=== PATIENT | male | born 1985 ===

== ENCOUNTER 2021-08-27 12:30 | Inpatient (IN) | payer SELFPAY ==
--- NOTE | 2021-08-27 13:20 | Emergency Department Report ---
- General Chief Complaint: Dyspnea/Respdistress Stated Complaint: HERMAN Time Seen by Provider: 08/27/21 12:44 Source: patient, family Mode of arrival: Ambulatory Limitations: No Limitations - History of Present Illness Initial Comments: History provided by patient and his significant other for some swedish translation with the patient's permission Patient is a 36-year-old male presents emergency room with complaints of shortness of breath that began 3 days ago. He has associated cough with mucus production. He is also been having fatigue and diarrhea. He denies any fever, vomiting, leg swelling, calf pain, hemoptysis. He has had a positive contact for COVID-19, he states his father has COVID. Patient has not been vaccinated for COVID. No past medical history. Non-smoker. No allergies to medications. - Related Data Allergies Allergy/AdvReac Type Severity Reaction Status Date / Time No Known Allergies Allergy Unverified 08/27/21 15:39 ED Review of Systems ROS: Stated complaint: HERMAN Other details as noted in HPI Comment: All other systems reviewed and negative ED Past Medical Hx - Past Medical History Previous Medical History?: No - Surgical History Past Surgical History?: No - Social History Smoking Status: Never Smoker ED Physical Exam - General Limitations: No Limitations General appearance: alert, in no apparent distress - Head Head exam: Present: atraumatic, normocephalic - Eye Eye exam: Present: normal appearance - ENT ENT exam: Present: mucous membranes moist - Respiratory Respiratory exam: Present: normal lung sounds bilaterally. Absent: respiratory distress, wheezes, rales, rhonchi, stridor, chest wall tenderness, accessory muscle use, decreased breath sounds, prolonged expiratory - Cardiovascular Cardiovascular Exam: Present: regular rate, normal rhythm, normal heart sounds. Absent: systolic murmur, diastolic murmur, rubs, gallop - Neurological Exam Neurological exam: Present: alert, oriented X3 - Psychiatric Psychiatric exam: Present: normal affect, normal mood - Skin Skin exam: Present: warm, dry, intact ED Course Vital Signs 08/27/21 12:37 Temperature 98.5 F Pulse Rate 97 H Respiratory 18 Rate Blood Pressure 114/76 O2 Sat by Pulse 94 Oximetry - Consultations Consultation #1: 08/27/21 14:[address] Yanes, hospitalist will accept and resume care of patient, will admit to hospital service ED Medical Decision Making - Lab Data Result diagrams: 08/27/21 12:53 08/27/21 14:32 Lab Results 08/27/21 08/27/21 Range/Units 12:53 12:53 WBC 9.1 (4.5-11.0) K/mm3 RBC 4.65 (3.65-5.03) M/mm3 Hgb 13.9 (11.8-15.2) gm/dl Hct 41.3 (35.5-45.6) % MCV 89 (84-94) fl MCH 30 (28-32) pg MCHC 34 (32-34) % RDW 12.6 L (13.2-15.2) % Plt Count 271 (140-440) K/mm3 Lymph % (Auto) 12.7 L (13.4-35.0) % Winn % (Auto) 3.5 (0.0-7.3) % Eos % (Auto) 0.1 (0.0-4.3) % Baso % (Auto) 0.2 (0.0-1.8) % Lymph # (Auto) 1.2 (1.2-5.4) K/mm3 Winn # (Auto) 0.3 (0.0-0.8) K/mm3 Eos # (Auto) 0.0 (0.0-0.4) K/mm3 Baso # (Auto) 0.0 (0.0-0.1) K/mm3 Seg Neutrophils % 83.5 H (40.0-70.0) % Seg Neutrophils # 7.6 (1.8-7.7) K/mm3 Sodium 134 L (137-145) mmol/L Potassium 4.7 (3.6-5.0) mmol/L Chloride 96.4 L (98-107) mmol/L Carbon Dioxide 26 (22-30) mmol/L Anion Gap 16 mmol/L BUN 9 (9-20) mg/dL Creatinine 0.7 L (0.8-1.3) mg/dL Estimated GFR > 60 ml/min BUN/Creatinine Ratio 13 % Glucose 109 H (75-100) mg/dL Calcium 8.5 (8.4-10.2) mg/dL Total Bilirubin 0.40 (0.1-1.2) mg/dL AST 55 H (5-40) units/L ALT 67 H (7-56) units/L Alkaline Phosphatase 89 (35-129) units/L Total Protein 7.9 (6.3-8.2) g/dL Albumin 3.4 L (3.9-5) g/dL Albumin/Globulin Ratio 0.8 % - Radiology Data Radiology results: report reviewed Ordering Physician: SHAUNA BRIZUELA Date of Service: 08/27/21 Procedure(s): XR chest routine 2V Accession Number(s): [id number] cc: SHAUNA BRIZUELA Fluoro Time In Minutes: CHEST 2 VIEWS INDICATION / CLINICAL INFORMATION: SOB, cough. COMPARISON: None available. FINDINGS: SUPPORT DEVICES: None. HEART / MEDIASTINUM: No significant abnormality. LUNGS / PLEURA: Diffuse bilateral pulmonary opacities No pneumothorax. ADDITIONAL FINDINGS: No significant additional findings. IMPRESSION: 1. Diffuse bilateral pulmonary opacities. Signer Name: Jaspreet Farrell MD Signed: 08/27/2021 1:34 PM Workstation Name: [id number] Transcribed By: CW Dictated By: BISHNU FARRELL MD Electronically Authenticated By: BISHNU FARRELL MD Signed Date/Time: 08/27/21 1334 DD/ 1333 TD/TT: - Medical Decision Making History provided by patient and his significant other for some swedish translation with the patient's permission Patient is a 36-year-old male presents emergency room with complaints of shor tness of breath that began 3 days ago. He has associated cough with mucus production. He is also been having fatigue and diarrhea. He denies any fever, vomiting, leg swelling, calf pain, hemoptysis. He has had a positive contact for COVID-19, he states his father has COVID. Patient has not been vaccinated for COVID. No past medical history. Non-smoker. No allergies to medications. Initial vitals with oxygen saturation 94% at rest, pantograph operator ambulated patient for a few feet and his oxygen desatted to 89% on room air and his heart rate increased to 110 bpm. Chest x-ray 1. Diffuse bilateral pulmonary opacities. Patient's inflammatory markers are elevated. Patient will be admitted for suspected COVID-19. Discussed case with Dr. Stephenson, ER attending who is agreeable with plan.Spoke to Dr. Yanes, hospitalist will accept and resume care of patient, will admit to hospital service. Patient agreeable with admission Critical care attestation.: If time is entered above; I have spent that time in minutes in the direct care of this critically ill patient, excluding procedure time. ED Disposition Clinical Impression: Suspected COVID-19 virus infection, Opacities of both lungs present on chest x- ray Acute respiratory failure Qualifiers: Respiratory failure complication: hypoxia Qualified Code(s): J96.01 - Acute respiratory failure with hypoxia Disposition: 02 [facility]ORT TERM [facility] Is pt being admited?: Yes Does the pt Need Aspirin: No Condition: Fair
[2021-08-27 13:24] LABS: Basophils % (Auto) 0.2 % (0.0-1.8); Eosinophils % (Auto) 0.1 % (0.0-4.3); Hematocrit 41.3 % (35.5-45.6); Hemoglobin 13.9 gm/dl (11.8-15.2); Lymphocytes # (Auto) 1.2 K/mm3 (1.2-5.4); Lymphocytes % (Auto) 12.7 % (13.4-35.0); Mean Corpuscular HGB Conc 34 % (32-34); Mean Corpuscular Volume 89 fl (84-94); Monocytes # (Auto) 0.3 K/mm3 (0.0-0.8); Monocytes % (Auto) 3.5 % (0.0-7.3); Platelet Count 271 K/mm3 (140-440); Red Blood Count 4.65 M/mm3 (3.65-5.03); Red Cell Distribution Width 12.6 % (13.2-15.2)
[2021-08-27 13:29] LABS: Alanine Aminotransferase 67 units/L (7-56); Albumin 3.4 g/dL (3.9-5); Blood Urea Nitrogen 9 mg/dL (9-20); Calcium 8.5 mg/dL (8.4-10.2); Hemolysis Index 10
[2021-08-27 13:34] LABS: BUN/Creatinine Ratio 13
--- NOTE | 2021-08-27 13:38 | XRay Report ---
CHEST 2 VIEWS INDICATION / CLINICAL INFORMATION: SOB, cough. COMPARISON: None available. FINDINGS: SUPPORT DEVICES: None. HEART / MEDIASTINUM: No significant abnormality. LUNGS / PLEURA: Diffuse bilateral pulmonary opacities No pneumothorax. ADDITIONAL FINDINGS: No significant additional findings. IMPRESSION: 1. Diffuse bilateral pulmonary opacities. Signer Name: Jaspreet Farrell MD Signed: 08/27/2021 1:34 PM Workstation Name: [id number]
[2021-08-27 15:09] LABS: C-Reactive Protein 23.5 mg/dL (0.00-1.30)
[2021-08-27] MEDS ORDERED: SODIUM CHLORIDE 0.9% 1000 ML 1,000 ML IV ONE (16:00)
[2021-08-27] MEDS ORDERED: cefTRIAXone/NS 2 GM/100 ML 2 GM/100 ML BAG IV ONE (16:00)
[2021-08-27] MEDS ORDERED: dexAMETHasone 4 MG/ML VIAL IV ONE (16:00)
[2021-08-27] MEDS ORDERED: AZITHROMYCIN/NS 500 MG/250 ML 500 MG/250 ML BAG IV ONE (16:00)
--- NOTE | 2021-08-27 21:30 | History and Physical Report ---
History of Present Illness Date of examination: 08/27/21 Date of admission: 08/27/21 14:13 Chief complaint: Cough and shortness of breath for 3 days History of present illness: Patient is a 36-year-old male presents emergency room with complaints of shortness of breath that began 3 days ago. He has associated cough with mucus production. He is also been having fatigue and diarrhea. He denies any fever, vomiting, leg swelling, calf pain, hemoptysis. He has had a positive contact for COVID-19, he states his father has COVID. Patient has not been vaccinated for COVID. No past medical history. Non-smoker. No allergies to medications. Patient is desaturating on minimal exertion - Past Medical History Previous Medical History?: No - Surgical History Past Surgical History?: No - Social History Smoking Status: Never Smoker Review of Systems ROS: Stated complaint: HERMAN Other details as noted in HPI Comment: All other systems reviewed and negative Medications and Allergies Allergies Allergy/AdvReac Type Severity Reaction Status Date / Time No Known Allergies Allergy Unverified 08/27/21 15:39 Exam - Constitutional Vitals: Temp Pulse Resp BP Pulse Ox 98.5 F 97 H 18 114/76 94 08/27/21 12:37 08/27/21 12:37 08/27/21 12:37 08/27/21 12:37 08/27/21 12:37 General appearance: Present: no acute distress, well-nourished - EENT Eyes: Present: PERRL ENT: hearing intact, clear oral mucosa - Neck Neck: Present: supple, normal ROM - Respiratory Respiratory effort: normal Respiratory: bilateral: CTA - Cardiovascular Heart rate: 78 Rhythm: regular Heart Sounds: Present: S1 & S2. Absent: rub, click - Extremities Extremities: pulses symmetrical, No edema Peripheral Pulses: within normal limits - Abdominal General gastrointestinal: Present: soft, non-tender, non-distended, normal bowel sounds Male genitourinary: Present: normal - Integumentary Integumentary: Present: clear, warm, dry - Musculoskeletal Musculoskeletal: gait normal, strength equal bilaterally - Psychiatric Psychiatric: appropriate mood/affect, intact judgment & insight - Neurologic Neurologic: CNII-XII intact, moves all extremities Results - Labs CBC & Chem 7: 08/27/21 12:53 08/27/21 14:32 Labs: Laboratory Last Values WBC 9.1 K/mm3 (4.5-11.0) 08/27/21 12:53 RBC 4.65 M/mm3 (3.65-5.03) 08/27/21 12:53 Hgb 13.9 gm/dl (11.8-15.2) 08/27/21 12:53 Hct 41.3 % (35.5-45.6) 08/27/21 12:53 MCV 89 fl (84-94) 08/27/21 12:53 MCH 30 pg (28-32) 08/27/21 12:53 MCHC 34 % (32-34) 08/27/21 12:53 RDW 12.6 % (13.2-15.2) L 08/27/21 12:53 Plt Count 271 K/mm3 (140-440) 08/27/21 12:53 Lymph % (Auto) 12.7 % (13.4-35.0) L 08/27/21 12:53 Sebastian % (Auto) 3.5 % (0.0-7.3) 08/27/21 12:53 Eos % (Auto) 0.1 % (0.0-4.3) 08/27/21 12:53 Baso % (Auto) 0.2 % (0.0-1.8) 08/27/21 12:53 Lymph # (Auto) 1.2 K/mm3 (1.2-5.4) 08/27/21 12:53 Sebastian # (Auto) 0.3 K/mm3 (0.0-0.8) 08/27/21 12:53 Eos # (Auto) 0.0 K/mm3 (0.0-0.4) 08/27/21 12:53 Baso # (Auto) 0.0 K/mm3 (0.0-0.1) 08/27/21 12:53 Seg Neutrophils % 83.5 % (40.0-70.0) H 08/27/21 12:53 Seg Neutrophils # 7.6 K/mm3 (1.8-7.7) 08/27/21 12:53 D-Dimer 530.96 ng/mlDDU (0-234) H 08/27/21 14:32 Sodium 134 mmol/L (137-145) L 08/27/21 12:53 Potassium 4.7 mmol/L (3.6-5.0) 08/27/21 12:53 Chloride 96.4 mmol/L (98-107) L 08/27/21 12:53 Carbon Dioxide 26 mmol/L (22-30) 08/27/21 12:53 Anion Gap 16 mmol/L 08/27/21 12:53 BUN 9 mg/dL (9-20) 08/27/21 12:53 Creatinine 0.7 mg/dL (0.8-1.3) L 08/27/21 12:53 Estimated GFR > 60 ml/min 08/27/21 12:53 BUN/Creatinine Ratio 13 % 08/27/21 12:53 Glucose 109 mg/dL (75-100) H 08/27/21 14:32 Calcium 8.5 mg/dL (8.4-10.2) 08/27/21 12:53 Ferritin 1807.0 ng/mL (30.0-300.0) H 08/27/21 14:32 Total Bilirubin 0.40 mg/dL (0.1-1.2) 08/27/21 12:53 AST 55 units/L (5-40) H 08/27/21 12:53 ALT 67 units/L (7-56) H 08/27/21 12:53 Alkaline Phosphatase 89 units/L (35-129) 08/27/21 12:53 Lactate Dehydrogenase 374 units/L (91-180) H 08/27/21 14:32 C-Reactive Protein 23.50 mg/dL (0.00-1.30) H 08/27/21 14:32 Total Protein 7.9 g/dL (6.3-8.2) 08/27/21 12:53 Albumin 3.4 g/dL (3.9-5) L 08/27/21 12:53 Albumin/Globulin Ratio 0.8 % 08/27/21 12:53 Short CBC 08/27/21 Range/Units 12:53 WBC 9.1 (4.5-11.0) K/mm3 Hgb 13.9 (11.8-15.2) gm/dl Hct 41.3 (35.5-45.6) % Plt Count 271 (140-440) K/mm3 BMP 08/27/21 08/27/21 12:53 14:32 Sodium 134 L Potassium 4.7 Chloride 96.4 L Carbon Dioxide 26 BUN 9 Creatinine 0.7 L Glucose 109 H 109 H Calcium 8.5 Liver Function 08/27/21 Range/Units 12:53 Total Bilirubin 0.40 (0.1-1.2) mg/dL AST 55 H (5-40) units/L ALT 67 H (7-56) units/L Alkaline Phosphatase 89 (35-129) units/L Albumin 3.4 L (3.9-5) g/dL - Imaging and Cardiology Chest x-ray: report reviewed Imaging and Cardiology: Chest x-ray Diffuse bilateral pulmonary opacities Assessment and Plan Advance Directives: Yes (Full code) VTE prophylaxis?: Chemical Plan of care discussed with patient/family: Yes - Patient Problems (1) Acute respiratory failure with hypoxia Current Visit: Yes Status: Acute Plan to address problem: Possibly secondary to bilateral pneumonia and Covid pneumonia Oxygen supplementation as necessary Isolation (2) Bilateral pneumonia Current Visit: Yes Status: Acute Plan to address problem: Patient initiated on IV Zithromax and IV Rocephin (3) Suspected COVID-19 virus infection Current Visit: Yes Status: Acute Plan to address problem: Patient initiated on IV Decadron Will defer about remdesivir to ID (4) DVT prophylaxis Current Visit: Yes Status: Acute Plan to address problem: On Lovenox and GI prophylaxis
[2021-08-27] MEDS ORDERED: ACETAMINOPHEN 325 MG TAB PO PRN (21:31)
[2021-08-27] MEDS ORDERED: ONDANSETRON 4 MG/2 ML INJ IV PRN (21:31)
[2021-08-27] MEDS ORDERED: oxyCODONE /ACETAMINOPHEN 5-325MG TAB PO PRN (21:37)
[2021-08-27] MEDS ORDERED: HYDROmorphone 1 MG/1 ML INJ IV PRN (21:37)
[2021-08-27] MEDS ORDERED: METOCLOPRAMIDE 10 MG/2 ML INJ IV PRN (21:37)
[2021-08-27] MEDS ORDERED: SODIUM CHLORIDE 0.9% 1000 ML 1,000 ML IV SCH (21:45)
[2021-08-27] MEDS: FAMOTIDINE 20 MG TAB PO SCH (22:58)
[2021-08-28] MEDS: guaiFENesin DM 200/20 MG ORAL LIQD 10 ML PO PRN (04:36)
[2021-08-28 07:37] LABS: Basophils % (Auto) 0.2 % (0.0-1.8); Hematocrit 37.9 % (35.5-45.6); Hemoglobin 13.5 gm/dl (11.8-15.2); Lymphocytes # (Auto) 0.9 K/mm3 (1.2-5.4); Lymphocytes % (Auto) 14.1 % (13.4-35.0); Mean Corpuscular HGB Conc 36 % (32-34); Mean Corpuscular Volume 88 fl (84-94); Monocytes # (Auto) 0.4 K/mm3 (0.0-0.8); Monocytes % (Auto) 6.1 % (0.0-7.3); Platelet Count 306 K/mm3 (140-440); Red Blood Count 4.33 M/mm3 (3.65-5.03); Red Cell Distribution Width 12.7 % (13.2-15.2)
[2021-08-28 07:59] LABS: Alanine Aminotransferase 64 units/L (7-56); Albumin 3.4 g/dL (3.9-5); Blood Urea Nitrogen 12 mg/dL (9-20); Calcium 8.6 mg/dL (8.4-10.2); Hemolysis Index 34
[2021-08-28 08:02] LABS: BUN/Creatinine Ratio 20
--- NOTE | 2021-08-28 08:51 | Progress Note ---
Assessment and Plan Assessment and plan: (1) Acute respiratory failure with hypoxia Current Visit: Yes Status: Acute Plan to address problem: Possibly secondary to bilateral pneumonia and Covid pneumonia Oxygen supplementation as necessary Isolation (2) Bilateral pneumonia Current Visit: Yes Status: Acute Plan to address problem: Patient initiated on IV Zithromax and IV Rocephin (3) Suspected COVID-19 virus infection Current Visit: Yes Status: Acute Plan to address problem: Patient initiated on IV Decadron Will defer about remdesivir to ID (4) DVT prophylaxis Current Visit: Yes Status: Acute Plan to address problem: On Lovenox and GI prophylaxis Closely monitor the patient and adjust management as needed Follow marin PCR test, ID consult if positive Plan of care reviewed with the patient and his nurse History Interval history: I seen and examined the patient at the bedside Isolation precautions and PPE protocols followed Admitted with PUI, no new complaints Hospitalist Physical - Constitutional Vitals: Temp Pulse Resp BP Pulse Ox 97.7 F 80 20 121/77 96 08/28/21 04:43 08/28/21 04:43 08/28/21 04:43 08/28/21 04:43 08/28/21 07:54 General appearance: Present: no acute distress, well-nourished, obese - EENT Eyes: Present: PERRL, EOM intact - Neck Neck: Present: supple, normal ROM - Respiratory Respiratory effort: normal Respiratory: bilateral: diminished, rhonchi, negative: rales, wheezing - Cardiovascular Rhythm: regular Heart Sounds: Present: S1 & S2 - Extremities Extremities: no ischemia, No edema - Abdominal General gastrointestinal: soft, non-tender, non-distended, normal bowel sounds - Integumentary Integumentary: Present: clear, warm - Psychiatric Psychiatric: appropriate mood/affect, cooperative - Neurologic Neurologic: moves all extremities Results - Labs CBC & Chem 7: 08/28/21 07:05 08/28/21 07:05 Labs: Laboratory Last Values WBC 6.2 K/mm3 (4.5-11.0) 08/28/21 07:05 RBC 4.33 M/mm3 (3.65-5.03) 08/28/21 07:05 Hgb 13.5 gm/dl (11.8-15.2) 08/28/21 07:05 Hct 37.9 % (35.5-45.6) 08/28/21 07:05 MCV 88 fl (84-94) 08/28/21 07:05 MCH 31 pg (28-32) 08/28/21 07:05 MCHC 36 % (32-34) H 08/28/21 07:05 RDW 12.7 % (13.2-15.2) L 08/28/21 07:05 Plt Count 306 K/mm3 (140-440) 08/28/21 07:05 Lymph % (Auto) 14.1 % (13.4-35.0) 08/28/21 07:05 [place] % (Auto) 6.1 % (0.0-7.3) 08/28/21 07:05 Eos % (Auto) 0.0 % (0.0-4.3) 08/28/21 07:05 Baso % (Auto) 0.2 % (0.0-1.8) 08/28/21 07:05 Lymph # (Auto) 0.9 K/mm3 (1.2-5.4) L 08/28/21 07:05 [place] # (Auto) 0.4 K/mm3 (0.0-0.8) 08/28/21 07:05 Eos # (Auto) 0.0 K/mm3 (0.0-0.4) 08/28/21 07:05 Baso # (Auto) 0.0 K/mm3 (0.0-0.1) 08/28/21 07:05 Seg Neutrophils % 79.6 % (40.0-70.0) H 08/28/21 07:05 Seg Neutrophils # 5.0 K/mm3 (1.8-7.7) 08/28/21 07:05 D-Dimer 530.96 ng/mlDDU (0-234) H 08/27/21 14:32 Sodium 134 mmol/L (137-145) L 08/28/21 07:05 Potassium 4.5 mmol/L (3.6-5.0) 08/28/21 07:05 Chloride 98.0 mmol/L (98-107) 08/28/21 07:05 Carbon Dioxide 25 mmol/L (22-30) 08/28/21 07:05 Anion Gap 16 mmol/L 08/28/21 07:05 BUN 12 mg/dL (9-20) 08/28/21 07:05 Creatinine 0.6 mg/dL (0.8-1.3) L 08/28/21 07:05 Estimated GFR > 60 ml/min 08/28/21 07:05 BUN/Creatinine Ratio 20 % 08/28/21 07:05 Glucose 144 mg/dL (75-100) H 08/28/21 07:05 POC Glucose 138 mg/dL (70-105) H 08/28/21 06:57 Calcium 8.6 mg/dL (8.4-10.2) 08/28/21 07:05 Ferritin 1807.0 ng/mL (30.0-300.0) H 08/27/21 14:32 Total Bilirubin 0.40 mg/dL (0.1-1.2) 08/28/21 07:05 AST 46 units/L (5-40) H 08/28/21 07:05 ALT 64 units/L (7-56) H 08/28/21 07:05 Alkaline Phosphatase 87 units/L (35-129) 08/28/21 07:05 Lactate Dehydrogenase 374 units/L (91-180) H 08/27/21 14:32 C-Reactive Protein 23.50 mg/dL (0.00-1.30) H 08/27/21 14:32 Total Protein 7.9 g/dL (6.3-8.2) 08/28/21 07:05 Albumin 3.4 g/dL (3.9-5) L 08/28/21 07:05 Albumin/Globulin Ratio 0.8 % 08/28/21 07:05 Elias/IV: Voiding Method Urinal Active Medications - Current Medications Current Medications: Generic Name Dose Route Start Last Admin Trade Name Freq PRN Reason Stop Dose Admin Acetaminophen 650 mg 08/27/21 21:31 Acetaminophen 325 Mg Tab PO Q4H PRN Pain MILD(1-3)/Fever >100.5/LYNN Dexamethasone 8 mg 08/28/21 10:00 Dexamethasone 4 Mg/Ml Vial IV 09/05/21 10:01 Q24HR ARLENE Enoxaparin Sodium 40 mg 08/28/21 10:00 Enoxaparin 40 Mg/0.4 Ml Inj SUB-Q QDAY ARLENE Famotidine 20 mg 08/27/21 22:00 08/27/21 22:58 Famotidine 20 Mg Tab PO 20 mg BID ARLENE Administration Guaifenesin 10 ml 08/28/21 04:07 08/28/21 04:36 Guaifenesin Dm 200/20 Mg Oral Liqd 10 Ml PO 10 ml Q4H PRN Administration Cough Hydromorphone HCl 0.5 mg 08/27/21 21:37 Hydromorphone 1 Mg/1 Ml Inj IV Q3H PRN Pain , Severe (7-10) Sodium Chloride 1,000 mls @ 75 mls/hr 08/27/21 21:45 08/27/21 22:59 Nacl 0.9% 1000 Ml IV 08/28/21 10:00 75 mls/hr DIRECT ARLENE Administration Azithromycin 500 mg in 250 mls @ 250 mls/hr 08/28/21 10:00 Zithromax/Ns IV 08/31/21 10:59 Q24HR ARLENE Ceftriaxone Sodium 2 gm in 100 mls @ 200 mls/hr 08/28/21 10:00 Rocephin/Ns 2 Gm/100 Ml IV 08/31/21 10:29 Q24HR ARLENE Protocol Metoclopramide HCl 10 mg 08/27/21 21:37 Metoclopramide 10 Mg/2 Ml Inj IV Q6H PRN Nausea And Vomiting Ondansetron HCl 4 mg 08/27/21 21:31 Ondansetron 4 Mg/2 Ml Inj IV Q8H PRN Nausea And Vomiting Oxycodone/Acetaminophen 1 tab 08/27/21 21:37 Oxycodone /Acetaminophen 5-325mg Tab PO Q6H PRN Pain, Moderate (4-6) Sodium Chloride 10 ml 08/27/21 22:00 08/27/21 22:58 Sodium Chloride 0.9% 10 Ml Flush Syringe IV 10 ml BID ARLENE Administration Sodium Chloride 10 ml 08/27/21 21:31 Sodium Chloride 0.9% 10 Ml Flush Syringe IV PRN PRN LINE FLUSH
[2021-08-28] MEDS ORDERED: cefTRIAXone/NS 2 GM/100 ML 2 GM/100 ML BAG IV SCH (10:00)
[2021-08-28] MEDS ORDERED: AZITHROMYCIN/NS 500 MG/250 ML 500 MG/250 ML BAG IV SCH (10:00)
[2021-08-28] MEDS ORDERED: dexAMETHasone 4 MG/ML VIAL IV SCH (10:00)
[2021-08-28] MEDS: ENOXAPARIN 40 MG/0.4 ML INJ SUB-Q SCH (10:15)
[2021-08-28] MEDS: FAMOTIDINE 20 MG TAB PO SCH ×2 (10:15→22:10)
--- NOTE | 2021-08-28 12:09 | Consultation ---
History of Present Illness - Reason for Consult Consult date: 08/28/21 - History of Present Illness 36-year-old with no past medical history presented to hospital complaining of shortness of breath. This began approximately 3 days prior to admission has been worsening since onset. He also complains of associated cough with fatigue and diarrhea. Otherwise no issues. He notes having positive contact for Covid in his father. He is not vaccinated against Covid. Afebrile since admission with a white count of 6.2. Covid PCR pending. Normal renal function. Elevated inflammatory markers. Elevated liver enzymes. Procalcitonin pending. Currently on ceftriaxone and azithromycin with d examethasone. No cultures were reviewed. Imaging personally reviewed: Chest x-ray: Diffuse bilateral pulmonary opacities. Review of systems: Deferred to reduce to the risk of transmission of COVID-19 Past History Past Medical History: No medical history Past Surgical History: No surgical history Social history: denies: smoking, alcohol abuse, IV drug use Family history: no significant family history Medications and Allergies Allergies Allergy/AdvReac Type Severity Reaction Status Date / Time No Known Allergies Allergy Unverified 08/27/21 15:39 Active Meds: Active Medications Acetaminophen (Acetaminophen 325 Mg Tab) 650 mg PO Q4H PRN PRN Reason: Pain MILD(1-3)/Fever >100.5/LYNN Dexamethasone (Dexamethasone 4 Mg/Ml Vial) 8 mg IV Q24HR [facility] Stop: 09/05/21 10:01 Last Admin: 08/28/21 10:15 Dose: 8 mg Documented by: Enoxaparin Sodium (Enoxaparin 40 Mg/0.4 Ml Inj) 40 mg SUB-Q QDAY [facility] Last Admin: 08/28/21 10:15 Dose: 40 mg Documented by: Famotidine (Famotidine 20 Mg Tab) 20 mg PO BID [facility] Last Admin: 08/28/21 10:15 Dose: 20 mg Documented by: Guaifenesin (Guaifenesin Dm 200/20 Mg Oral Liqd 10 Ml) 10 ml PO Q4H PRN PRN Reason: Cough Last Admin: 08/28/21 04:36 Dose: 10 ml Documented by: Hydromorphone HCl (Hydromorphone 1 Mg/1 Ml Inj) 0.5 mg IV Q3H PRN PRN Reason: Pain , Severe (7-10) Azithromycin (Zithromax/Ns) 500 mg in 250 mls @ 250 mls/hr IV Q24HR [facility] Stop: 08/31/21 10:59 Last Admin: 08/28/21 10:14 Dose: 250 mls/hr Documented by: Ceftriaxone Sodium (Rocephin/Ns 2 Gm/100 Ml) 2 gm in 100 mls @ 200 mls/hr IV Q24HR [facility]; Protocol Stop: 08/31/21 10:29 Last Admin: 08/28/21 10:14 Dose: 200 mls/hr Documented by: Metoclopramide HCl (Metoclopramide 10 Mg/2 Ml Inj) 10 mg IV Q6H PRN PRN Reason: Nausea And Vomiting Ondansetron HCl (Ondansetron 4 Mg/2 Ml Inj) 4 mg IV Q8H PRN PRN Reason: Nausea And Vomiting Oxycodone/Acetaminophen (Oxycodone /Acetaminophen 5-325mg Tab) 1 tab PO Q6H PRN PRN Reason: Pain, Moderate (4-6) Sodium Chloride (Sodium Chloride 0.9% 10 Ml Flush Syringe) 10 ml IV BID [facility] Last Admin: 08/28/21 10:15 Dose: 10 ml Documented by: Sodium Chloride (Sodium Chloride 0.9% 10 Ml Flush Syringe) 10 ml IV PRN PRN PRN Reason: LINE FLUSH Physical Examination - Physical Exam Narrative exam: Physical exam deferred to reduce risk of transmission of COVID-19. Please refer to primary team's note. - Constitutional Vitals: Vital Signs Temp Pulse Resp BP Pulse Ox 97.7 F 80 20 121/77 98 08/28/21 04:43 08/28/21 04:43 08/28/21 04:43 08/28/21 04:43 08/28/21 09:50 Temperature -Last 24 Hours Temperature 97.7 F Temperature 98.5 F Temperature 98.5 F Results - Labs CBC & Chem 7: 08/28/21 07:05 08/28/21 07:05 Labs: Abnormal lab results 08/27/21 08/27/21 08/27/21 Range/Units 12:53 12:53 14:32 MCHC (32-34) % RDW 12.6 L (13.2-15.2) % Lymph % (Auto) 12.7 L (13.4-35.0) % Lymph # (Auto) (1.2-5.4) K/mm3 Seg Neutrophils % 83.5 H (40.0-70.0) % D-Dimer 530.96 H (0-234) ng/mlDDU Sodium 134 L (137-145) mmol/L Chloride 96.4 L (98-107) mmol/L Creatinine 0.7 L (0.8-1.3) mg/dL Glucose 109 H (75-100) mg/dL POC Glucose (70-105) mg/dL Ferritin (30.0-300.0) ng/mL AST 55 H (5-40) units/L ALT 67 H (7-56) units/L Lactate Dehydrogenase (91-180) units/L C-Reactive Protein (0.00-1.30) mg/dL Albumin 3.4 L (3.9-5) g/dL 08/27/21 08/27/21 08/28/21 Range/Units 14:32 14:32 06:57 MCHC (32-34) % RDW (13.2-15.2) % Lymph % (Auto) (13.4-35.0) % Lymph # (Auto) (1.2-5.4) K/mm3 Seg Neutrophils % (40.0-70.0) % D-Dimer (0-234) ng/mlDDU Sodium (137-145) mmol/L Chloride (98-107) mmol/L Creatinine (0.8-1.3) mg/dL Glucose 109 H (75-100) mg/dL POC Glucose 138 H (70-105) mg/dL Ferritin 1807.0 H (30.0-300.0) ng/mL AST (5-40) units/L ALT (7-56) units/L Lactate Dehydrogenase 374 H (91-180) units/L C-Reactive Protein 23.50 H (0.00-1.30) mg/dL Albumin (3.9-5) g/dL 08/28/21 08/28/21 Range/Units 07:05 07:05 MCHC 36 H (32-34) % RDW 12.7 L (13.2-15.2) % Lymph % (Auto) (13.4-35.0) % Lymph # (Auto) 0.9 L (1.2-5.4) K/mm3 Seg Neutrophils % 79.6 H (40.0-70.0) % D-Dimer (0-234) ng/mlDDU Sodium 134 L (137-145) mmol/L Chloride (98-107) mmol/L Creatinine 0.6 L (0.8-1.3) mg/dL Glucose 144 H (75-100) mg/dL POC Glucose (70-105) mg/dL Ferritin (30.0-300.0) ng/mL AST 46 H (5-40) units/L ALT 64 H (7-56) units/L Lactate Dehydrogenase (91-180) units/L C-Reactive Protein (0.00-1.30) mg/dL Albumin 3.4 L (3.9-5) g/dL Assessment and Plan Cultures: Blood culture Urine culture Sputum culture Wound culture A/P: #Severe COVID-19 pneumonia: Patient presented with a week of symptoms, chest x- ray with diffuse bilateral infiltrates, admission O2 sats decreased on room air. Inflammatory markers elevated #Acute hypoxemic respiratory failure: Likely secondary to COVID-19 infection. Currently on 2L NC #Obesity: Associated with worse outcomes. Recommendations: -Dexamethasone 6 mg IV/PO daily for 10 days -Remdesivir 200 mg IV q day x 1 followed by 100 mg IV q day x 4 days -Obtain q48-72h inflammatory markers - ferritin, Ddimer, CRP, LDH -Continue ceftriaxone 2 gm IV qday and azithromycin 500 mg PO qday, if procalcitonin <0.25 ng/mL stop antibiotics -Anticoagulation per hospital protocol -Proning as able Thank you for the consult, we will continue to follow. MD [facility] ([facility] O: [phone] F: [phone]
[2021-08-28] MEDS: SODIUM CHLORIDE 0.9% 50 ML IVPB IV SCH (16:26)
[2021-08-28] MEDS ORDERED: REMDESIVIR 200 MG in SODIUM CHLORIDE 0.9% 250ML 250 ML IV ONE (17:00)
--- NOTE | 2021-08-28 22:42 | Progress Note ---
Assessment and Plan Assessment and plan: --COVID-19 infection: Current Visit: Yes Status: Acute [place] PCR is positive Dexamethasone 10 days remdesivir 5 days Isolation precautions, check inflammatory markers Patient is requiring 3 L nasal cannula oxygen today Wean as tolerated, Prone positioning Home O2 evaluation on discharge prone positioning, Home O2 evaluation, at discharge --Acute respiratory failure with hypoxia Current Visit: Yes Status: Acute Requiring 2 L of nasal cannula oxygen Wean as tolerated, home O2 evaluation at discharge -- Bilateral pneumonia Current Visit: Yes Status: Acute On empiric antibiotics Zithromax and Rocephin However procalcitonin is low, DC antibiotics --Obesity : BMI 33.5 Current Visit: Yes Status: Chronic Patient needs weight reduction Diet modification and exercise as tolerated When medically stable --DVT prophylaxis Current Visit: Yes Status: Acute On Lovenox and GI prophylaxis Closely monitor the patient and adjust management as needed ID evaluation recommendations noted and appreciated Plan of care reviewed with the patient and his nurse 08/29: Patient is on steroids, remdesivir Hypoxic requiring 3 L of nasal cannula oxygen Home O2 evaluation prior to discharge. prone positioning ID following History Interval history: I have seen and examined the patient at the bedside Patient's chart and medications reviewed Patient is requiring 3 L of nasal cannula oxygen Complains of generalized weakness Afebrile Hospitalist Physical - Constitutional Vitals: Temp Pulse Resp BP Pulse Ox 98.1 F 87 20 133/80 91 08/28/21 11:13 08/28/21 11:13 08/28/21 11:13 08/28/21 11:13 08/28/21 11:13 General appearance: Present: no acute distress, well-nourished, obese, other (3 L nasal cannula oxygen) - EENT Eyes: Present: PERRL, EOM intact - Neck Neck: Present: supple, normal ROM - Respiratory Respiratory effort: normal Respiratory: bilateral: diminished, rhonchi, negative: rales, wheezing - Cardiovascular Rhythm: regular Heart Sounds: Present: S1 & S2 - Extremities Extremities: no ischemia, No edema - Abdominal General gastrointestinal: soft, non-tender, non-distended, normal bowel sounds - Integumentary Integumentary: Present: clear, warm - Psychiatric Psychiatric: appropriate mood/affect, cooperative - Neurologic Neurologic: CNII-XII intact, moves all extremities Results - Labs CBC & Chem 7: 08/28/21 07:05 11/03/21 09:00 Labs: Laboratory Last Values WBC 6.2 K/mm3 (4.5-11.0) 08/28/21 07:05 RBC 4.33 M/mm3 (3.65-5.03) 08/28/21 07:05 Hgb 13.5 gm/dl (11.8-15.2) 08/28/21 07:05 Hct 37.9 % (35.5-45.6) 08/28/21 07:05 MCV 88 fl (84-94) 08/28/21 07:05 MCH 31 pg (28-32) 08/28/21 07:05 MCHC 36 % (32-34) H 08/28/21 07:05 RDW 12.7 % (13.2-15.2) L 08/28/21 07:05 Plt Count 306 K/mm3 (140-440) 08/28/21 07:05 Lymph % (Auto) 14.1 % (13.4-35.0) 08/28/21 07:05 [place] % (Auto) 6.1 % (0.0-7.3) 08/28/21 07:05 Eos % (Auto) 0.0 % (0.0-4.3) 08/28/21 07:05 Baso % (Auto) 0.2 % (0.0-1.8) 08/28/21 07:05 Lymph # (Auto) 0.9 K/mm3 (1.2-5.4) L 08/28/21 07:05 [place] # (Auto) 0.4 K/mm3 (0.0-0.8) 08/28/21 07:05 Eos # (Auto) 0.0 K/mm3 (0.0-0.4) 08/28/21 07:05 Baso # (Auto) 0.0 K/mm3 (0.0-0.1) 08/28/21 07:05 Seg Neutrophils % 79.6 % (40.0-70.0) H 08/28/21 07:05 Seg Neutrophils # 5.0 K/mm3 (1.8-7.7) 08/28/21 07:05 D-Dimer 530.96 ng/mlDDU (0-234) H 08/27/21 14:32 Sodium 134 mmol/L (137-145) L 08/28/21 07:05 Potassium 4.5 mmol/L (3.6-5.0) 08/28/21 07:05 Chloride 98.0 mmol/L (98-107) 08/28/21 07:05 Carbon Dioxide 25 mmol/L (22-30) 08/28/21 07:05 Anion Gap 16 mmol/L 08/28/21 07:05 BUN 12 mg/dL (9-20) 08/28/21 07:05 Creatinine 0.6 mg/dL (0.8-1.3) L 08/28/21 07:05 Estimated GFR > 60 ml/min 08/28/21 07:05 BUN/Creatinine Ratio 20 % 08/28/21 07:05 Glucose 144 mg/dL (75-100) H 08/28/21 07:05 POC Glucose 138 mg/dL (70-105) H 08/28/21 06:57 Calcium 8.6 mg/dL (8.4-10.2) 08/28/21 07:05 Ferritin 1807.0 ng/mL (30.0-300.0) H 08/27/21 14:32 Total Bilirubin 0.40 mg/dL (0.1-1.2) 08/28/21 07:05 AST 46 units/L (5-40) H 08/28/21 07:05 ALT 64 units/L (7-56) H 08/28/21 07:05 Alkaline Phosphatase 87 units/L (35-129) 08/28/21 07:05 Lactate Dehydrogenase 374 units/L (91-180) H 08/27/21 14:32 C-Reactive Protein 23.50 mg/dL (0.00-1.30) H 08/27/21 14:32 Total Protein 7.9 g/dL (6.3-8.2) 08/28/21 07:05 Albumin 3.4 g/dL (3.9-5) L 08/28/21 07:05 Albumin/Globulin Ratio 0.8 % 08/28/21 07:05 Procalcitonin 0.09 ng/mL (<0.15) 08/27/21 14:32 Coronavirus (PCR) Positive (Negative) A 08/28/21 Unknown Elias/IV: Voiding Method Urinal Active Medications - Current Medications Current Medications: Generic Name Dose Route Start Last Admin Trade Name Freq PRN Reason Stop Dose Admin Acetaminophen 650 mg 08/27/21 21:31 Acetaminophen 325 Mg Tab PO Q4H PRN Pain MILD(1-3)/Fever >100.5/LYNN Dexamethasone 8 mg 08/28/21 10:00 08/28/21 10:15 Dexamethasone 4 Mg/Ml Vial IV 09/05/21 10:01 8 mg Q24HR ARLENE Administration Enoxaparin Sodium 40 mg 08/28/21 10:00 08/28/21 10:15 Enoxaparin 40 Mg/0.4 Ml Inj SUB-Q 40 mg QDAY ARLENE Administration Famotidine 20 mg 08/27/21 22:00 08/28/21 22:10 Famotidine 20 Mg Tab PO 20 mg BID ARLENE Administration Guaifenesin 10 ml 08/28/21 04:07 08/28/21 04:36 Guaifenesin Dm 200/20 Mg Oral Liqd 10 Ml PO 10 ml Q4H PRN Administration Cough Hydromorphone HCl 0.5 mg 08/27/21 21:37 Hydromorphone 1 Mg/1 Ml Inj IV Q3H PRN Pain , Severe (7-10) Azithromycin 500 mg in 250 mls @ 250 mls/hr 08/28/21 10:00 08/28/21 10:14 Zithromax/Ns IV 08/31/21 10:59 250 mls/hr Q24HR ARLENE Administration Ceftriaxone Sodium 2 gm in 100 mls @ 200 mls/hr 08/28/21 10:00 08/28/21 10:14 Rocephin/Ns 2 Gm/100 Ml IV 08/31/21 10:29 200 mls/hr Q24HR ARLENE Administration Protocol REMDESIVIR 100 mg/ Sodium 250 mls @ 500 mls/hr 08/29/21 21:00 Chloride IV 09/01/21 21:29 Q24HR@2100 ARLENE Metoclopramide HCl 10 mg 08/27/21 21:37 Metoclopramide 10 Mg/2 Ml Inj IV Q6H PRN Nausea And Vomiting Ondansetron HCl 4 mg 08/27/21 21:31 Ondansetron 4 Mg/2 Ml Inj IV Q8H PRN Nausea And Vomiting Oxycodone/Acetaminophen 1 tab 08/27/21 21:37 Oxycodone /Acetaminophen 5-325mg Tab PO Q6H PRN Pain, Moderate (4-6) Sodium Chloride 10 ml 08/27/21 22:00 08/28/21 22:11 Sodium Chloride 0.9% 10 Ml Flush Syringe IV 10 ml BID ARLENE Administration Sodium Chloride 10 ml 08/27/21 21:31 Sodium Chloride 0.9% 10 Ml Flush Syringe IV PRN PRN LINE FLUSH Sodium Chloride 50 ml 08/28/21 17:00 08/28/21 16:26 Sodium Chloride 0.9% 50 Ml Ivpb IV 09/01/21 21:01 50 ml Q24HR@2100 ARLENE Administration
[2021-08-29] MEDS: guaiFENesin DM 200/20 MG ORAL LIQD 10 ML PO PRN ×2 (01:44→22:44)
[2021-08-29] MEDS ORDERED: ZOLPIDEM 5 MG TAB PO ONE (01:49)
[2021-08-29] MEDS: FAMOTIDINE 20 MG TAB PO SCH ×2 (10:04→22:34)
[2021-08-29] MEDS: ENOXAPARIN 40 MG/0.4 ML INJ SUB-Q SCH (10:04)
[2021-08-29] MEDS: DEXAMETHASONE 4 MG TAB PO SCH (10:05)
[2021-08-29 13:39] LABS: Alanine Aminotransferase 56 units/L (7-56); Albumin 3.3 g/dL (3.9-5); Blood Urea Nitrogen 17 mg/dL (9-20); Calcium 8.8 mg/dL (8.4-10.2); Hemolysis Index 14
[2021-08-29 13:41] LABS: BUN/Creatinine Ratio 28
--- NOTE | 2021-08-29 14:06 | Progress Note ---
Assessment and Plan Cultures: Blood culture Urine culture Sputum culture Wound culture A/P: #Severe COVID-19 pneumonia: Patient presented with a week of symptoms, chest x- ray with diffuse bilateral infiltrates, admission O2 sats decreased on room air. Inflammatory markers elevated #Acute hypoxemic respiratory failure: Likely secondary to COVID-19 infection. Currently on 3L NC #Obesity: Associated with worse outcomes. Recommendations: -Dexamethasone 6 mg IV/PO daily for 10 days -Remdesivir 200 mg IV q day x 1 followed by 100 mg IV q day x 4 days -Obtain q48-72h inflammatory markers - ferritin, Ddimer, CRP, LDH -Procalcitonin low, antibiotics not needed. -Anticoagulation per hospital protocol -Proning as able Thank you for the consult, we will continue to follow. Filemon Pineda MD [facility], [place], [facility] ([facility]) O: [phone] F: [phone] Subjective Date of service: 08/29/21 Interval history: Afebrile, normal white count. Currently requiring 3 L nasal cannula. Normal procalcitonin. Objective - Exam Narrative Exam: Physical exam deferred to reduce risk of transmission of COVID-19. Please refer to primary team's note. - Constitutional Vitals: Vital Signs Temp Pulse Resp BP Pulse Ox 97.8 F 72 18 120/72 95 08/29/21 11:51 08/29/21 11:51 08/29/21 13:38 08/29/21 11:51 08/29/21 13:38 Temperature -Last 24 Hours Temperature 97.8 F Temperature 97.7 F Temperature 98.4 F Temperature 98.9 F - Labs CBC & Chem 7: 08/28/21 07:05 08/29/21 09:00 Labs: Abnormal lab results 08/28/21 08/29/21 Range/Units Unknown 09:00 Sodium 134 L (137-145) mmol/L Chloride 97.9 L (98-107) mmol/L Creatinine 0.6 L (0.8-1.3) mg/dL Glucose 150 H (75-100) mg/dL Albumin 3.3 L (3.9-5) g/dL Coronavirus (PCR) Positive A (Negative)
[2021-08-29] MEDS: REMDESIVIR 100 MG in SODIUM CHLORIDE 0.9% 250ML 250 ML IV SCH (22:34)
[2021-08-29] MEDS: SODIUM CHLORIDE 0.9% 50 ML IVPB IV SCH (23:05)
[2021-08-30 07:53] LABS: Alanine Aminotransferase 64 units/L (7-56); Albumin 3.4 g/dL (3.9-5); Blood Urea Nitrogen 18 mg/dL (9-20); Calcium 8.6 mg/dL (8.4-10.2); Hemolysis Index 3
[2021-08-30 07:56] LABS: BUN/Creatinine Ratio 30
[2021-08-30] MEDS: ENOXAPARIN 40 MG/0.4 ML INJ SUB-Q SCH (10:38)
[2021-08-30] MEDS: DEXAMETHASONE 4 MG TAB PO SCH (10:38)
[2021-08-30] MEDS: FAMOTIDINE 20 MG TAB PO SCH ×2 (10:38→21:32)
[2021-08-30] MEDS: guaiFENesin DM 200/20 MG ORAL LIQD 10 ML PO PRN (12:48)
--- NOTE | 2021-08-30 13:24 | Progress Note ---
Assessment and Plan Cultures: Blood culture no growth so far A/P: 28-year-old man past medical history obesity admitted with COVID-19 pneumonia #Severe COVID-19 pneumonia: Patient presented with a week of symptoms, chest x- ray with diffuse bilateral infiltrates, admission O2 sats decreased on room air. Inflammatory markers elevated #Acute hypoxemic respiratory failure: Likely secondary to COVID-19 infection. Currently on 3L NC #Obesity: Associated with worse outcomes. Recommendations: -Dexamethasone 6 mg IV/PO daily for 10 days -Remdesivir 200 mg IV q day x 1 followed by 100 mg IV q day x 4 days -Obtain q48-72h inflammatory markers - ferritin, Ddimer, CRP, LDH -Procalcitonin low, antibiotics not needed. -Anticoagulation per hospital protocol -Proning as able Thank you for the consult, we will continue to follow. Filemon Pineda MD [facility] ([facility] O: [phone] F: [phone] Subjective Date of service: 08/30/21 Interval history: Afebrile, normal white count. Currently requiring 2 L nasal cannula. Objective - Exam Narrative Exam: Physical exam deferred to reduce risk of transmission of COVID-19. Please refer to primary team's note. - Constitutional Vitals: Vital Signs Temp Pulse Resp BP Pulse Ox 97.8 F 61 18 114/71 96 08/30/21 05:59 08/30/21 05:59 08/30/21 07:10 08/30/21 05:59 08/30/21 07:10 Temperature -Last 24 Hours Temperature 97.8 F Temperature 98.2 F Temperature 97.9 F - Labs CBC & Chem 7: 08/28/21 07:05 08/30/21 07:10 Labs: Abnormal lab results 08/29/21 08/30/21 08/30/21 Range/Units 09:00 07:10 07:10 Sodium 134 L 133 L (137-145) mmol/L Chloride 97.9 L 96.2 L (98-107) mmol/L Creatinine 0.6 L 0.6 L (0.8-1.3) mg/dL Glucose 150 H 131 H (75-100) mg/dL Ferritin 786.2 H (30.0-300.0) ng/mL ALT 64 H (7-56) units/L Lactate Dehydrogenase 244 H (91-180) units/L C-Reactive Protein 2.90 H (0.00-1.30) mg/dL Albumin 3.3 L 3.4 L (3.9-5) g/dL
--- NOTE | 2021-08-30 15:15 | Progress Note ---
Assessment and Plan Assessment and plan: --COVID-19 infection: Current Visit: Yes Status: Acute [place] PCR is positive Dexamethasone 10 days remdesivir 5 days Isolation precautions, check inflammatory markers Patient is requiring 3 L nasal cannula oxygen today Wean as tolerated, Prone positioning Home O2 evaluation on discharge prone positioning, Home O2 evaluation, at discharge --Acute respiratory failure with hypoxia Current Visit: Yes Status: Acute Requiring 2 L of nasal cannula oxygen Wean as tolerated, home O2 evaluation at discharge -- Bilateral pneumonia Current Visit: Yes Status: Acute On empiric antibiotics Zithromax and Rocephin However procalcitonin is low, DC antibiotics --Obesity : BMI 33.5 Current Visit: Yes Status: Chronic Patient needs weight reduction Diet modification and exercise as tolerated When medically stable --DVT prophylaxis Current Visit: Yes Status: Acute On Lovenox and GI prophylaxis Closely monitor the patient and adjust management as needed ID evaluation recommendations noted and appreciated Plan of care reviewed with the patient and his nurse 08/29: Patient is on steroids, remdesivir Hypoxic requiring 3 L of nasal cannula oxygen Home O2 evaluation prior to discharge. prone positioning ID following 08/30; continue remdesivir, steroid Oxygen, prone positioning, CM to set up home O2 as needed History Interval history: I have seen and examined the patient at the bedside Isolation precautions PPE protocols strictly followed Patient complains of mild shortness of breath Saturating on 2 L nasal cannula Hospitalist Physical - Constitutional Vitals: Temp Pulse Resp BP Pulse Ox 97.9 F 66 22 120/78 97 08/30/21 11:40 08/30/21 11:40 08/30/21 11:40 08/30/21 11:40 08/30/21 11:40 General appearance: Present: no acute distress, well-nourished, obese, other (3 L nasal cannula oxygen) - EENT Eyes: Present: PERRL, EOM intact - Neck Neck: Present: supple, normal ROM - Respiratory Respiratory effort: normal Respiratory: bilateral: diminished, negative: rales, rhonchi, wheezing - Cardiovascular Rhythm: regular Heart Sounds: Present: S1 & S2 - Extremities Extremities: no ischemia, No edema - Abdominal General gastrointestinal: soft, non-tender, non-distended, normal bowel sounds - Integumentary Integumentary: Present: clear, warm - Psychiatric Psychiatric: appropriate mood/affect, cooperative - Neurologic Neurologic: CNII-XII intact, moves all extremities Results - Labs CBC & Chem 7: 08/28/21 07:05 08/30/21 07:10 Labs: Laboratory Last Values WBC 6.2 K/mm3 (4.5-11.0) 08/28/21 07:05 RBC 4.33 M/mm3 (3.65-5.03) 08/28/21 07:05 Hgb 13.5 gm/dl (11.8-15.2) 08/28/21 07:05 Hct 37.9 % (35.5-45.6) 08/28/21 07:05 MCV 88 fl (84-94) 08/28/21 07:05 MCH 31 pg (28-32) 08/28/21 07:05 MCHC 36 % (32-34) H 08/28/21 07:05 RDW 12.7 % (13.2-15.2) L 08/28/21 07:05 Plt Count 306 K/mm3 (140-440) 08/28/21 07:05 Lymph % (Auto) 14.1 % (13.4-35.0) 08/28/21 07:05 [place] % (Auto) 6.1 % (0.0-7.3) 08/28/21 07:05 Eos % (Auto) 0.0 % (0.0-4.3) 08/28/21 07:05 Baso % (Auto) 0.2 % (0.0-1.8) 08/28/21 07:05 Lymph # (Auto) 0.9 K/mm3 (1.2-5.4) L 08/28/21 07:05 [place]att # (Auto) 0.4 K/mm3 (0.0-0.8) 08/28/21 07:05 Eos # (Auto) 0.0 K/mm3 (0.0-0.4) 08/28/21 07:05 Baso # (Auto) 0.0 K/mm3 (0.0-0.1) 08/28/21 07:05 Seg Neutrophils % 79.6 % (40.0-70.0) H 08/28/21 07:05 Seg Neutrophils # 5.0 K/mm3 (1.8-7.7) 08/28/21 07:05 D-Dimer 200.22 ng/mlDDU (0-234) 08/30/21 07:10 Sodium 133 mmol/L (137-145) L 08/30/21 07:10 Potassium 4.3 mmol/L (3.6-5.0) 08/30/21 07:10 Chloride 96.2 mmol/L (98-107) L 08/30/21 07:10 Carbon Dioxide 26 mmol/L (22-30) 08/30/21 07:10 Anion Gap 15 mmol/L 08/30/21 07:10 BUN 18 mg/dL (9-20) 08/30/21 07:10 Creatinine 0.6 mg/dL (0.8-1.3) L 08/30/21 07:10 Estimated GFR > 60 ml/min 08/30/21 07:10 BUN/Creatinine Ratio 30 % 08/30/21 07:10 Glucose 131 mg/dL (75-100) H 08/30/21 07:10 POC Glucose 138 mg/dL (70-105) H 08/28/21 06:57 Calcium 8.6 mg/dL (8.4-10.2) 08/30/21 07:10 Ferritin 786.2 ng/mL (30.0-300.0) H 08/30/21 07:10 Total Bilirubin 0.50 mg/dL (0.1-1.2) 08/30/21 07:10 AST 27 units/L (5-40) 08/30/21 07:10 ALT 64 units/L (7-56) H 08/30/21 07:10 Alkaline Phosphatase 74 units/L (35-129) 08/30/21 07:10 Lactate Dehydrogenase 244 units/L (91-180) H 08/30/21 07:10 C-Reactive Protein 2.90 mg/dL (0.00-1.30) H 08/30/21 07:10 Total Protein 7.4 g/dL (6.3-8.2) 08/30/21 07:10 Albumin 3.4 g/dL (3.9-5) L 08/30/21 07:10 Albumin/Globulin Ratio 0.9 % 08/30/21 07:10 Procalcitonin 0.09 ng/mL (<0.15) 08/27/21 14:32 Coronavirus (PCR) Positive (Negative) A 08/28/21 Unknown Elias/IV: Voiding Method Urinal Active Medications - Current Medications Current Medications: Generic Name Dose Route Start Last Admin Trade Name Freq PRN Reason Stop Dose Admin Acetaminophen 650 mg 08/27/21 21:31 Acetaminophen 325 Mg Tab PO Q4H PRN Pain MILD(1-3)/Fever >100.5/LYNN Dexamethasone 8 mg 08/29/21 10:00 08/30/21 10:38 Dexamethasone 4 Mg Tab PO 09/05/21 11:59 8 mg DAILY ARLENE Administration Enoxaparin Sodium 40 mg 08/28/21 10:00 08/30/21 10:38 Enoxaparin 40 Mg/0.4 Ml Inj SUB-Q 40 mg QDAY ARLENE Administration Famotidine 20 mg 08/27/21 22:00 08/30/21 10:38 Famotidine 20 Mg Tab PO 20 mg BID ARLENE Administration Guaifenesin 10 ml 08/28/21 04:07 08/30/21 12:48 Guaifenesin Dm 200/20 Mg Oral Liqd 10 Ml PO 10 ml Q4H PRN Administration Cough Hydromorphone HCl 0.5 mg 08/27/21 21:37 Hydromorphone 1 Mg/1 Ml Inj IV Q3H PRN Pain , Severe (7-10) REMDESIVIR 100 mg/ Sodium 250 mls @ 500 mls/hr 08/29/21 21:00 08/29/21 22:34 Chloride IV 09/01/21 21:29 500 mls/hr Q24HR@2100 ARLENE Administration Metoclopramide HCl 10 mg 08/27/21 21:37 Metoclopramide 10 Mg/2 Ml Inj IV Q6H PRN Nausea And Vomiting Ondansetron HCl 4 mg 08/27/21 21:31 Ondansetron 4 Mg/2 Ml Inj IV Q8H PRN Nausea And Vomiting Oxycodone/Acetaminophen 1 tab 08/27/21 21:37 08/29/21 22:44 Oxycodone /Acetaminophen 5-325mg Tab PO 1 tab Q6H PRN Administration Pain, Moderate (4-6) Sodium Chloride 10 ml 08/27/21 22:00 08/30/21 10:39 Sodium Chloride 0.9% 10 Ml Flush Syringe IV 10 ml BID ARLENE Administration Sodium Chloride 10 ml 08/27/21 21:31 Sodium Chloride 0.9% 10 Ml Flush Syringe IV PRN PRN LINE FLUSH Sodium Chloride 50 ml 08/28/21 17:00 08/29/21 23:05 Sodium Chloride 0.9% 50 Ml Ivpb IV 09/01/21 21:01 50 ml Q24HR@2100 ARLENE Administration
[2021-08-30] MEDS: REMDESIVIR 100 MG in SODIUM CHLORIDE 0.9% 250ML 250 ML IV SCH (21:31)
[2021-08-30] MEDS: SODIUM CHLORIDE 0.9% 50 ML IVPB IV SCH (22:00)
[2021-08-31] MEDS: guaiFENesin DM 200/20 MG ORAL LIQD 10 ML PO PRN (01:10)
[2021-08-31 06:45] LABS: Alanine Aminotransferase 82 units/L (7-56); Albumin 3.3 g/dL (3.9-5); Blood Urea Nitrogen 20 mg/dL (9-20); Calcium 8.6 mg/dL (8.4-10.2); Hemolysis Index 7
[2021-08-31 06:50] LABS: BUN/Creatinine Ratio 33
[2021-08-31] MEDS: ENOXAPARIN 40 MG/0.4 ML INJ SUB-Q SCH (10:46)
[2021-08-31] MEDS: FAMOTIDINE 20 MG TAB PO SCH ×2 (10:47→21:17)
[2021-08-31] MEDS: DEXAMETHASONE 4 MG TAB PO SCH (10:47)
--- NOTE | 2021-08-31 11:32 | Progress Note ---
Assessment and Plan Cultures: Blood culture no growth so far A/P: 28-year-old man past medical history obesity admitted with COVID-19 pneumonia #Severe COVID-19 pneumonia: Patient presented with a week of symptoms, chest x- ray with diffuse bilateral infiltrates, admission O2 sats decreased on room air. Inflammatory markers elevated #Acute hypoxemic respiratory failure: Likely secondary to COVID-19 infection. Currently on 3L NC #Obesity: Associated with worse outcomes. Recommendations: -Dexamethasone 6 mg IV/PO daily for 10 days -Remdesivir 200 mg IV q day x 1 followed by 100 mg IV q day x 4 days -Obtain q48-72h inflammatory markers - ferritin, Ddimer, CRP, LDH -Procalcitonin low, antibiotics not needed. -Anticoagulation per hospital protocol -Proning as able Thank you for the consult, we will continue to follow. Filemon Pineda MD [facility] ([facility] O: [phone] F: [phone] Subjective Date of service: 08/31/21 Interval history: Afebrile, normal white count. Objective - Exam Narrative Exam: Physical exam deferred to reduce risk of transmission of COVID-19. Please refer to primary team's note. - Constitutional Vitals: Vital Signs Temp Pulse Resp BP Pulse Ox 97.6 F 71 16 110/69 92 08/31/21 10:57 08/31/21 10:57 08/31/21 10:57 08/31/21 10:57 08/31/21 10:57 Temperature -Last 24 Hours Temperature 97.6 F Temperature 97.8 F Temperature 97.5 F Temperature 98.4 F Temperature 97.9 F - Labs CBC & Chem 7: 08/28/21 07:05 08/31/21 05:12 Labs: Abnormal lab results 08/31/21 Range/Units 05:12 Sodium 134 L (137-145) mmol/L Chloride 97.4 L (98-107) mmol/L Creatinine 0.6 L (0.8-1.3) mg/dL Glucose 133 H (75-100) mg/dL ALT 82 H (7-56) units/L Albumin 3.3 L (3.9-5) g/dL
--- NOTE | 2021-08-31 17:12 | Progress Note ---
Assessment and Plan Assessment and plan: --COVID-19 infection: Current Visit: Yes Status: Acute [place] PCR is positive Dexamethasone 10 days remdesivir 5 days[last dose tomorrow] Isolation precautions, check inflammatory markers Patient is requiring 3 L nasal cannula oxygen today Wean as tolerated, Prone positioning Home O2 evaluation on discharge prone positioning, Home O2 evaluation, at discharge --Acute respiratory failure with hypoxia Current Visit: Yes Status: Acute Requiring 2 L of nasal cannula oxygen Wean as tolerated, home O2 evaluation at discharge -- Bilateral pneumonia Current Visit: Yes Status: Acute On empiric antibiotics Zithromax and Rocephin However procalcitonin is low, DC antibiotics --Obesity : BMI 33.5 Current Visit: Yes Status: Chronic Patient needs weight reduction Diet modification and exercise as tolerated When medically stable --DVT prophylaxis Current Visit: Yes Status: Acute On Lovenox and GI prophylaxis Closely monitor the patient and adjust management as needed ID evaluation recommendations noted and appreciated Plan of care reviewed with the patient and his nurse 08/29: Patient is on steroids, remdesivir Hypoxic requiring 3 L of nasal cannula oxygen Home O2 evaluation prior to discharge. prone positioning ID following 08/30; continue remdesivir, steroid Oxygen, prone positioning, CM to set up home O2 as needed 08/31; last dose of remdesivir tomorrow, home O2 set up 3 L nasal cannula at discharge Possible discharge 1 to 2 days if stable History Interval history: I have seen and examined the patient at the bedside Patient's chart and medications reviewed No new events reported by the nursing Patient feels slightly better Vital signs noted, hypoxic requiring 3 L nasal cannula oxygen Hospitalist Physical - Constitutional Vitals: Temp Pulse Resp BP Pulse Ox 97.6 F 71 16 110/69 92 08/31/21 10:57 08/31/21 10:57 08/31/21 10:57 08/31/21 10:57 08/31/21 12:00 General appearance: Present: no acute distress, well-nourished, obese, other (3 L nasal cannula oxygen) - EENT Eyes: Present: PERRL, EOM intact - Neck Neck: Present: supple, normal ROM - Respiratory Respiratory effort: normal Respiratory: bilateral: diminished, negative: rales, rhonchi, wheezing - Cardiovascular Rhythm: regular Heart Sounds: Present: S1 & S2 - Extremities Extremities: no ischemia, No edema - Abdominal General gastrointestinal: soft, non-tender, non-distended, normal bowel sounds - Integumentary Integumentary: Present: clear, warm - Psychiatric Psychiatric: appropriate mood/affect, cooperative - Neurologic Neurologic: CNII-XII intact, moves all extremities Results - Labs CBC & Chem 7: 08/28/21 07:05 08/31/21 05:12 Labs: Laboratory Last Values WBC 6.2 K/mm3 (4.5-11.0) 08/28/21 07:05 RBC 4.33 M/mm3 (3.65-5.03) 08/28/21 07:05 Hgb 13.5 gm/dl (11.8-15.2) 08/28/21 07:05 Hct 37.9 % (35.5-45.6) 08/28/21 07:05 MCV 88 fl (84-94) 08/28/21 07:05 MCH 31 pg (28-32) 08/28/21 07:05 MCHC 36 % (32-34) H 08/28/21 07:05 RDW 12.7 % (13.2-15.2) L 08/28/21 07:05 Plt Count 306 K/mm3 (140-440) 08/28/21 07:05 Lymph % (Auto) 14.1 % (13.4-35.0) 08/28/21 07:05 [place] % (Auto) 6.1 % (0.0-7.3) 08/28/21 07:05 Eos % (Auto) 0.0 % (0.0-4.3) 08/28/21 07:05 Baso % (Auto) 0.2 % (0.0-1.8) 08/28/21 07:05 Lymph # (Auto) 0.9 K/mm3 (1.2-5.4) L 08/28/21 07:05 [place] # (Auto) 0.4 K/mm3 (0.0-0.8) 08/28/21 07:05 Eos # (Auto) 0.0 K/mm3 (0.0-0.4) 08/28/21 07:05 Baso # (Auto) 0.0 K/mm3 (0.0-0.1) 08/28/21 07:05 Seg Neutrophils % 79.6 % (40.0-70.0) H 08/28/21 07:05 Seg Neutrophils # 5.0 K/mm3 (1.8-7.7) 08/28/21 07:05 D-Dimer 200.22 ng/mlDDU (0-234) 08/30/21 07:10 Sodium 134 mmol/L (137-145) L 08/31/21 05:12 Potassium 4.1 mmol/L (3.6-5.0) 08/31/21 05:12 Chloride 97.4 mmol/L (98-107) L 08/31/21 05:12 Carbon Dioxide 25 mmol/L (22-30) 08/31/21 05:12 Anion Gap 16 mmol/L 08/31/21 05:12 BUN 20 mg/dL (9-20) 08/31/21 05:12 Creatinine 0.6 mg/dL (0.8-1.3) L 08/31/21 05:12 Estimated GFR > 60 ml/min 08/31/21 05:12 BUN/Creatinine Ratio 33 % 08/31/21 05:12 Glucose 133 mg/dL (75-100) H 08/31/21 05:12 POC Glucose 138 mg/dL (70-105) H 08/28/21 06:57 Calcium 8.6 mg/dL (8.4-10.2) 08/31/21 05:12 Ferritin 786.2 ng/mL (30.0-300.0) H 08/30/21 07:10 Total Bilirubin 0.40 mg/dL (0.1-1.2) 08/31/21 05:12 AST 30 units/L (5-40) 08/31/21 05:12 ALT 82 units/L (7-56) H 08/31/21 05:12 Alkaline Phosphatase 73 units/L (35-129) 08/31/21 05:12 Lactate Dehydrogenase 244 units/L (91-180) H 08/30/21 07:10 C-Reactive Protein 2.90 mg/dL (0.00-1.30) H 08/30/21 07:10 Total Protein 7.2 g/dL (6.3-8.2) 08/31/21 05:12 Albumin 3.3 g/dL (3.9-5) L 08/31/21 05:12 Albumin/Globulin Ratio 0.8 % 08/31/21 05:12 Procalcitonin 0.09 ng/mL (<0.15) 08/27/21 14:32 Coronavirus (PCR) Positive (Negative) A 08/28/21 Unknown Elias/IV: Voiding Method Toilet Active Medications - Current Medications Current Medications: Generic Name Dose Route Start Last Admin Trade Name Freq PRN Reason Stop Dose Admin Acetaminophen 650 mg 08/27/21 21:31 Acetaminophen 325 Mg Tab PO Q4H PRN Pain MILD(1-3)/Fever >100.5/LYNN Dexamethasone 8 mg 08/29/21 10:00 08/31/21 10:47 Dexamethasone 4 Mg Tab PO 09/05/21 11:59 8 mg DAILY ARLENE Administration Enoxaparin Sodium 40 mg 08/28/21 10:00 08/31/21 10:46 Enoxaparin 40 Mg/0.4 Ml Inj SUB-Q 40 mg QDAY ARLENE Administration Famotidine 20 mg 08/27/21 22:00 08/31/21 10:47 Famotidine 20 Mg Tab PO 20 mg BID ARLENE Administration Guaifenesin 10 ml 08/28/21 04:07 08/31/21 01:10 Guaifenesin Dm 200/20 Mg Oral Liqd 10 Ml PO 10 ml Q4H PRN Administration Cough Hydromorphone HCl 0.5 mg 08/27/21 21:37 Hydromorphone 1 Mg/1 Ml Inj IV Q3H PRN Pain , Severe (7-10) REMDESIVIR 100 mg/ Sodium 250 mls @ 500 mls/hr 08/29/21 21:00 08/30/21 21:31 Chloride IV 09/01/21 21:29 500 mls/hr Q24HR@2100 ARLENE Administration Metoclopramide HCl 10 mg 08/27/21 21:37 Metoclopramide 10 Mg/2 Ml Inj IV Q6H PRN Nausea And Vomiting Ondansetron HCl 4 mg 08/27/21 21:31 Ondansetron 4 Mg/2 Ml Inj IV Q8H PRN Nausea And Vomiting Oxycodone/Acetaminophen 1 tab 08/27/21 21:37 08/29/21 22:44 Oxycodone /Acetaminophen 5-325mg Tab PO 1 tab Q6H PRN Administration Pain, Moderate (4-6) Sodium Chloride 10 ml 08/27/21 22:00 08/31/21 10:47 Sodium Chloride 0.9% 10 Ml Flush Syringe IV 10 ml BID ARLENE Administration Sodium Chloride 10 ml 08/27/21 21:31 Sodium Chloride 0.9% 10 Ml Flush Syringe IV PRN PRN LINE FLUSH Sodium Chloride 50 ml 08/28/21 17:00 08/30/21 22:00 Sodium Chloride 0.9% 50 Ml Ivpb IV 09/01/21 21:01 50 ml Q24HR@2100 ARLENE Administration
[2021-08-31] MEDS: REMDESIVIR 100 MG in SODIUM CHLORIDE 0.9% 250ML 250 ML IV SCH (21:17)
[2021-08-31] MEDS: SODIUM CHLORIDE 0.9% 50 ML IVPB IV SCH (21:17)
[2021-09-01] MEDS: DEXAMETHASONE 4 MG TAB PO SCH (09:22)
[2021-09-01] MEDS: ENOXAPARIN 40 MG/0.4 ML INJ SUB-Q SCH (09:22)
[2021-09-01] MEDS: FAMOTIDINE 20 MG TAB PO SCH (09:22)
[2021-09-01] MEDS: REMDESIVIR 100 MG in SODIUM CHLORIDE 0.9% 250ML 250 ML IV SCH (12:31)
[2021-09-01] MEDS: SODIUM CHLORIDE 0.9% 50 ML IVPB IV SCH (12:32)
[2021-09-01 12:58] VITALS: BP 113/67
--- NOTE | 2021-09-01 13:37 | Discharge Summary ---
Providers - Providers Date of Admission: 08/27/21 21:31 Date of discharge: 09/01/21 Attending physician: RINKU GUZMAN 08/28/21 07:09 Consult to Physician [CONS] Routine Comment: Consulting Provider: MARTINEZ VENTURA Physician Instructions: Reason For Exam: Bilateral pneumonia Primary care physician: ENGINEERING AND OPERATIONS DIRECTOR Hospitalization Condition: Fair Hospital course: --COVID-19 infection: Current Visit: Yes Status: Acute [place] PCR is positive Dexamethasone 10 days remdesivir 5 days[last dose tomorrow] Isolation precautions, check inflammatory markers Patient is requiring 3 L nasal cannula oxygen today We will set up home O2 at discharge --Acute respiratory failure with hypoxia Current Visit: Yes Status: Acute Requiring 2 L of nasal cannula oxygen Wean as tolerated, home O2 evaluation at discharge --Mild hyponatremia Current Visit: Yes Status: Acute -- Bilateral pneumonia Current Visit: Yes Status: Acute On empiric antibiotics Zithromax and Rocephin However procalcitonin is low, DC antibiotics --Obesity : BMI 33.5 Current Visit: Yes Status: Chronic Patient needs weight reduction Diet modification and exercise as tolerated When medically stable Case management evaluated and set up home oxygen 3 L via nasal cannula at discharge Disposition: 30 STILL A PATIENT Final Discharge Diagnosis (Prints w/discharge instructions): COVID-19 infection. Acute hypoxic respiratory failure. Mild hyponatremia improved. Requiring home oxygen. Bilateral pneumonia. Obesity BMI 33.5 Exam - Constitutional Vitals: Temp Pulse Resp BP Pulse Ox 97.6 F 72 19 113/67 96 09/01/21 11:39 09/01/21 11:39 09/01/21 11:39 09/01/21 11:39 09/01/21 11:39 Plan Activity: no restrictions Diet: regular Durable Medical Equipment Needed Upon Discharge: Oxygen (3 L nasal cannula as needed) Additional Instructions: Advised to follow strict isolation precautions, safe distancing, masking, prone positioning and other COVID-19 CDC guidelines as instructed by the discharge nurse. Home oxygen ,use 3 L of nasal cannula oxygen as needed. If you have worsening symptoms contact MD or go to the nearest emergency room Follow up with: PALMIRA RIZZO MD [Staff Physician] - 2-3 Days Prescriptions: dexAMETHasone [Dexamethasone] 2 tab PO DAILY #8 tablet guaiFENesin DM [Guaifenesin Dm Syrup] 10 ml PO Q4H PRN 14 Days #1 bottle PRN Reason: Cough Ascorbic Acid [Vitamin C] 500 mg PO QDAY #14 capsule.er Cholecalciferol Vit D3 [Vitamin D3 1,000 UNIT TAB] 1,000 unit PO QDAY #14 tablet Zinc Sulfate [Zinc] 220 mg PO BID #30 tablet
== END 2021-09-01 17:30 | disposition home or self-care (01) | DRG 177 ==
LOC: ED 12:30 → 3A 14:13 → OBSVTOIN 21:31
PROVIDERS: ADMIT Internal Medicine; ATTEND Internal Medicine
PROC: XW033E5 Introduction of Remdesivir Anti-infective into Peripheral Vein, Percutaneous Approach, New Technology Group 5 (ICD-10-PCS; principal; 2021-08-28)
DX: U07.1 COVID-19 (principal); J96.01 Acute respiratory failure with hypoxia; J12.82 Pneumonia due to coronavirus disease 2019; E87.1 Hypo-osmolality and hyponatremia; R91.8 Other nonspecific abnormal finding of lung field; E66.9 Obesity, unspecified; Z68.33 Body mass index [BMI] 33.0-33.9, adult
CPT/HCPCS: 36415; 71046; 80053; 82728; 82947; 82962; 83615; 84145; 85025; 85379; 86140; 94760; G0378; J0456; J0696; J1100; J1650; J7030; J7050; J8540; U0003